=== PATIENT | male | born 1950 | race African-American/Black ===

== ENCOUNTER 2022-09-07 17:39 | Emergency (ER) | payer BC ==
[~2022-09-07] VITALS: Ht 180.3 cm; Wt 88.0 kg
[2022-09-07 18:34] VITALS: BP 161/85
== END 2022-09-07 23:32 | disposition left against medical advice (07) ==
LOC: ER 17:39
DX: R53.1 Weakness (principal); I10 Essential (primary) hypertension; Z98.890 Other specified postprocedural states
CPT/HCPCS: 99281

== ENCOUNTER 2022-10-23 23:22 | Emergency (ER) | payer BC ==
[~2022-10-23] VITALS: Ht 175.3 cm; Wt 69.0 kg
[2022-10-23 23:26] VITALS: BP 169/98
[2022-10-24] MEDS ORDERED: IBUPROFEN 600MG TABLET PO ONE (00:30)
[2022-10-24] MEDS ORDERED: NAPR-681 PO (00:34)
== END 2022-10-24 03:07 | disposition home or self-care (01) ==
LOC: ER 23:22
DX: G89.29 Other chronic pain (principal); M54.50 Low back pain, unspecified; I10 Essential (primary) hypertension
CPT/HCPCS: 99283